=== PATIENT | female | born 1970 | race Caucasian/White ===

== ENCOUNTER 2017-05-06 01:09 | Emergency (ER) | payer OTHER ==
[~2017-05-06] VITALS: Ht 180.3 cm; Wt 101.6 kg
[2017-05-06] MEDS ORDERED: OXYC-396 PO (01:20)
[2017-05-06] MEDS ORDERED: AMLO10 PO (01:20)
[2017-05-06] MEDS ORDERED: VITA1000 PO (01:21)
[2017-05-06 01:22] VITALS: BP_SYST 186; BP_SYST 199; BP_DIAS 102; BP_DIAS 116; PULSE 87; RESP 18; TEMP 98.2; O2SAT 96
[2017-05-06 01:28] VITALS: BP 173/98; PULSE 79; RESP 16; O2SAT 97
[2017-05-06 01:37] LABS: AUTOMATED NEUTROPHIL # 3.8 TH/MM3 (1.8-7.7); BASOPHIL % 0.6 % (0.0-2.0); EOSINOPHIL # 0.1 TH/MM3 (0-0.4); EOSINOPHIL % 1.5 % (0.0-4.0); HEMATOCRIT 37.7 % (35.0-46.0); HEMOGLOBIN 12.3 GM/DL (11.6-15.3); LYMPH % 37.3 % (9.0-44.0); LYMPHOCYTE # 2.5 TH/MM3 (1.0-4.8); MEAN CELL VOLUME 84.8 FL (80.0-100.0); MEAN CORPUSCULAR HEMOGLOBIN 27.6 PG (27.0-34.0); MEAN CORPUSCULAR HGB CONC 32.5 % (32.0-36.0); MEAN PLATELET VOLUME 10.1 FL (7.0-11.0); MONO % 6.5 % (0.0-8.0); MONOCYTE # 0.4 TH/MM3 (0-0.9); NEUT % 54.1 % (16.0-70.0); PLATELET COUNT 268 TH/MM3 (150-450); RED BLOOD COUNT 4.44 MIL/MM3 (4.00-5.30); RED CELL DISTRIBUTION WIDTH 12.9 % (11.6-17.2); WHITE BLOOD COUNT 6.8 TH/MM3 (4.0-11.0)
[2017-05-06 01:46] LABS: CHLORIDE 100 MEQ/L (98-107); SODIUM (NA) 139 MEQ/L (136-145)
--- NOTE | 2017-05-06 01:46 | PD ---
HPI Chief Complaint: Chest Pain Time Seen by Provider: 01:22 Travel History International Travel<30 days: No Contact w/Intl Traveler<30days: No Traveled to known affect area: No History of Present Illness HPI The patient is a 46-year-old female with no known history of heart disease who complains of a sudden onset of sharp chest pain in the left costochondral junctions of the upper sternum at 1143 tonight. The pain is constant. She denies any shortness of breath, diaphoresis but does have some nausea. The pain radiates to her left shoulder. She denies any history of pulmonary embolus. Her medical problems include only fibromyalgia, chronic back pain, hypertension. She is on oxycodone 20 mg twice daily and has been on pain medicines for over 10 years. She had a pain specialist in [place], she recently moved to [place]. She is getting a pain specialist down here as well. She is trying to reduce her amount of oxycodone that she takes and sometimes takes it only once a day. She does not smoke and does not abuse alcohol or drugs. She is a nurse. She has not recorded a fever at home but thinks she might have a fever with some nausea and she did not vomit today but vomited yesterday several times. PFSH Past Medical History Medical other: Yes ("BAD BACK") Tetanus Vaccination: < 5 Years Influenza Vaccination: Yes ?: Unknown LMP: 04/28/17 Past Surgical History Appendectomy: Yes Cholecystectomy: Yes Social History Alcohol Use: No Tobacco Use: No Substance Use: No Allergies-Medications (Allergen,Severity, Reaction): Coded Allergies: No Known Allergies (Unverified , 05/06/17) Reported Meds & Prescriptions Reported Meds & Active Scripts Active Reported Vitamin D-1000 (Cholecalciferol) 1,000 Unit Tab 1,000 Units PO DAILY Oxycodone (Oxycodone HCl) 20 Mg Tab 20 Mg PO Q12HR PRN Norvasc (Amlodipine Besylate) 10 Mg Tab 10 Mg PO DAILY Review of Systems Except as stated in HPI: all other systems reviewed are Neg Physical Exam Narrative GENERAL: The patient is alert, anxious appearing, oriented 3 and moderate apparent distress with her chest discomfort. Her vital signs show blood pressure 190 9/1/16 and repeat 186/102 but otherwise normal. A third repeat reveals 173/98. SKIN: Focused skin assessment warm/dry. HEAD: Atraumatic. Normocephalic. EYES: Pupils equal and round. No scleral icterus. No injection or drainage. ENT: No nasal bleeding or discharge. Mucous membranes pink and moist. NECK: Trachea midline. No JVD. CARDIOVASCULAR: Regular rate and rhythm. No murmur appreciated. RESPIRATORY: No accessory muscle use. Clear to auscultation. Breath sounds equal bilaterally. I can only partially reproduce the patient's chest pain by pressing on the left costochondral junctions. GASTROINTESTINAL: Abdomen soft, non-tender, nondistended. Hepatic and splenic margins not palpable. MUSCULOSKELETAL: No obvious deformities. No clubbing. No cyanosis. No edema. NEUROLOGICAL: Awake and alert. No obvious cranial nerve deficits. Motor grossly within normal limits. Normal speech. PSYCHIATRIC: Appropriate mood and affect; insight and judgment normal. Data Data Last Documented VS Vital Signs Date Time Temp Pulse Resp B/P (MAP) Pulse Ox O2 Delivery O2 Flow Rate FiO2 05/06/17 02:34 146/90 (108) 05/06/17 01:55 71 16 05/06/17 01:28 97 Room Air 05/06/17 01:22 98.2 Orders Orders Electrocardiogram (05/06/17 01:24) Complete Blood Count With Diff (05/06/17 01:24) Basic Metabolic Panel (Bmp) (05/06/17 01:24) Ckmb (Isoenzyme) Profile (05/06/17 01:24) Troponin I (05/06/17 01:24) Iv Access Insert/Monitor (05/06/17 01:24) Ecg Monitoring (05/06/17 01:24) Oximetry (05/06/17 01:24) Chest, Pa & Lat (05/06/17 ) Bilateral Bp Monitoring (05/06/17 01:29) D-Dimer (05/06/17 01:35) Ketorolac Inj (Toradol Inj) (05/06/17 02:00) CKMB (05/06/17 01:20) CKMB% (05/06/17 01:20) Labs Laboratory Tests Test 05/06/17 01:20 White Blood Count 6.8 TH/MM3 Red Blood Count 4.44 MIL/MM3 Hemoglobin 12.3 GM/DL Hematocrit 37.7 % Mean Corpuscular Volume 84.8 FL Mean Corpuscular Hemoglobin 27.6 PG Mean Corpuscular Hemoglobin Concent 32.5 % Red Cell Distribution Width 12.9 % Platelet Count 268 TH/MM3 Mean Platelet Volume 10.1 FL Neutrophils (%) (Auto) 54.1 % Lymphocytes (%) (Auto) 37.3 % Monocytes (%) (Auto) 6.5 % Eosinophils (%) (Auto) 1.5 % Basophils (%) (Auto) 0.6 % Neutrophils # (Auto) 3.8 TH/MM3 Lymphocytes # (Auto) 2.5 TH/MM3 Monocytes # (Auto) 0.4 TH/MM3 Eosinophils # (Auto) 0.1 TH/MM3 Basophils # (Auto) 0.0 TH/MM3 CBC Comment DIFF FINAL Differential Comment D-Dimer Quantitative (PE/DVT) 0.31 MG/L FEU Blood Urea Nitrogen 13 MG/DL Creatinine 1.10 MG/DL Random Glucose 123 MG/DL Calcium Level 8.7 MG/DL Sodium Level 139 MEQ/L Potassium Level 3.7 MEQ/L Chloride Level 100 MEQ/L Carbon Dioxide Level 34.5 MEQ/L Anion Gap 5 MEQ/L Estimat Glomerular Filtration Rate 53 ML/MIN Total Creatine Kinase 174 U/L Creatine Kinase MB 2.0 NG/ML Troponin I LESS THAN 0.02 NG/ML MDM Medical Decision Making Medical Screen Exam Complete: Yes Emergency Medical Condition: Yes Medical Record Reviewed: Yes Interpretation(s) EKG shows sinus rhythm with a rate of [address] elevation or depression. The basic metabolic profile shows a GFR 53, creatinine 1.1 and bicarbonate 3 4.5. The rest of the basic metabolic profile is normal. The cardiac enzymes are normal. The CBC is normal. The d-dimer is normal at 0.31. The chest x-ray shows no acute disease. Differential Diagnosis Costochondritis, atypical chest pain, acute coronary syndrome-unlikely, pulmonary embolus-unlikely, electrolyte disorder, hypo-/hyperglycemia Narrative Course The patient has atypical chest pain. She has fibromyalgia and gets pains like this on occasion. She has a pain management doctor that she is working with and will see this physician. Diagnosis Primary Impression: Atypical chest pain Additional Instructions: Follow-up with her pain management doctor, he seems to be willing to try different routes. Med/Other Pt SpecificInfo: No Change to Meds Disposition: 01 DISCHARGE HOME Condition: Stable Daniele Padilla MD May 06, 2017 01:46
[2017-05-06 01:48] LABS: CALCIUM 8.7 MG/DL (8.5-10.1)
[2017-05-06 01:49] LABS: BICARBONATE 34.5 MEQ/L (21.0-32.0); BLOOD UREA NITROGEN 13 MG/DL (7-18); GLUCOSE,RANDOM 123 MG/DL (74-106)
[2017-05-06 01:52] LABS: GLOMERULAR FILTRATION RATE 53 ML/MIN (>89)
[2017-05-06 01:55] VITALS: BP 179/100; PULSE 71; RESP 16
[2017-05-06 01:57] LABS: TROPONIN I LESS THAN 0.02 NG/ML (0.02-0.05)
[2017-05-06] MEDS ORDERED: KETOROLAC TROMETHAMINE 30 MG/ML (IVP) VIAL IV PUSH ONE (02:00)
[2017-05-06 02:34] VITALS: BP 146/90
--- NOTE | 2017-05-06 03:03 | RADRPT ---
EXAM DATE/TIME: 05/06/2017 01:30 [facility] COMPARISON: No previous studies available for comparison. INDICATIONS : Chest pain. MEDICAL HISTORY : None. SURGICAL HISTORY : None. ENCOUNTER: Initial ACUITY: 1 day PAIN SCORE: 6/10 LOCATION: Left chest FINDINGS: PA and lateral views of the chest demonstrate the lungs to be symmetrically aerated without evidence of mass, infiltrate or effusion. The cardiomediastinal contours are unremarkable. Osseous structure s are intact. CONCLUSION: No acute disease. Andi Johnson MD on May 06, 2017 at 3:00 Board Certified Radiologist. This report was verified electronically.
--- NOTE | 2017-05-06 10:39 | EKG ---
Date Performed: 05/06/2017 Time Performed: 01:16:59 PTAGE: 46 years EKG: Sinus rhythm BORDERLINE LEFT AXIS DEVIATION BORDERLINE ECG NO PREVIOUS TRACING DOCTOR: Fercho Parks Interpretating Date/Time 05/06/2017 10:37:34
== END 2017-05-06 03:21 | disposition home or self-care (01) ==
LOC: PHED 01:09
DX: R07.89 Other chest pain (principal); M79.7 Fibromyalgia
CPT/HCPCS: 71020; 80048; 82550; 82552; 84484; 85025; 85379; 93005; 96374; 99285; J1885

== ENCOUNTER 2018-01-06 16:28 | Emergency (ER) | payer SELFPAY ==
[~2018-01-06] VITALS: Ht 180.3 cm; Wt 100.0 kg
[~2018-01-06 16:28] MED LIST: AMLO10 PO; OXYC-396 PO; VITA1000 PO
[2018-01-06 16:31] VITALS: BP 194/98; PULSE 88; RESP 18; TEMP 98.6; O2SAT 99
--- NOTE | 2018-01-06 17:04 | PD ---
HPI Chief Complaint: Oral / Dental Pain or Problem Time Seen by Provider: 16:49 Travel History International Travel<30 days: No Contact w/Intl Traveler<30days: No Traveled to known affect area: No History of Present Illness HPI 47 year old female here with dental pain and facial swelling 2 days. She reports she has taken 4 doses of amoxicillin 500 mg and the swelling to the face is greatly reduced but the pain persisted therefore she came in for evaluation today. She denies fever chills. No difficulty swallowing. Symptom severity is moderate. No aggravating or alleviating factors. PFSH Past Medical History Medical History: Denies Significant Hx Fibromyalgia: Yes ?: Not Past Surgical History Appendectomy: Yes Cholecystectomy: Yes Social History Alcohol Use: No Tobacco Use: No Substance Use: No Allergies-Medications (Allergen,Severity, Reaction): Coded Allergies: No Known Allergies (Unverified Adverse Reaction, Unknown, 01/06/18) Reported Meds & Prescriptions Reported Meds & Active Scripts Active Ultram (Tramadol HCl) 50 Mg Tab 50 Mg PO Q6H PRN Clindamycin (Clindamycin HCl) 300 Mg Cap 300 Mg PO Q6H 10 Days Reported Norvasc (Amlodipine Besylate) 10 Mg Tab 5 Mg PO DAILY Review of Systems Except as stated in HPI: all other systems reviewed are Neg General / Constitutional: No: Fever Eyes: No: Visual changes HENT: Positive: Dental Difficulties, No: Headaches Cardiovascular: No: Chest Pain or Discomfort Respiratory: No: Shortness of Breath Gastrointestinal: No: Abdominal Pain Genitourinary: No: Dysuria Musculoskeletal: No: Pain Physical Exam Narrative GENERAL: Alert and well-appearing 47-year-old female SKIN: Warm and dry. HEAD: Normocephalic. EYES: No injection or drainage. MOUTH: Decayed and fractured tooth #29 with surrounding gum erythema. No swelling to the floor of the mouth. Uvula is midline. No oral airway swelling. Normal phonation. Mucous members are moist. Mild swelling noted along the right jawline. NECK: Supple, trachea midline. Mild right submandibular lymphadenopathy. No neck mass or swelling. CARDIOVASCULAR: Regular rate and rhythm RESPIRATORY: Breath sounds equal bilaterally. No accessory muscle use. MUSCULOSKELETAL: No cyanosis, or edema. Data Data Last Documented VS Vital Signs Date Time Temp Pulse Resp B/P (MAP) Pulse Ox O2 Delivery O2 Flow Rate FiO2 01/06/18 16:31 98.6 88 18 194/98 (130) 99 Orders Orders Clindamycin Inj (Cleocin Inj) (01/06/18 17:15) MDM Medical Decision Making Medical Screen Exam Complete: Yes Emergency Medical Condition: Yes Differential Diagnosis dental abscess, dental caries, Pravin angina Narrative Course 47 year old female with dental abscess. She is well appearing. No oral airway swelling. Afebrile. She will be treated with clindamycin. Follow up with dentist. Return precautions discussed. Diagnosis Primary Impression: Dental abscess Referrals: Dentist Additional Instructions: Clindamycin as directed. Ibuprofen 800 mg every 6 hours as needed for pain. Follow-up with the dentist. Return if he develop new or worsening symptoms as discussed. Scripts Tramadol (Ultram) 50 Mg Tab 50 MG PO Q6H Y for PAIN, #8 TAB 0 Refills Prov: Luiza Guzman 01/06/18 Clindamycin (Clindamycin) 300 Mg Cap 300 MG PO Q6H for Infection for 10 Days, #40 CAP 0 Refills Prov: Luiza Guzman 01/06/18 Disposition: 01 DISCHARGE HOME Condition: Stable Luiza Guzman Jan 06, 2018 17:04
[2018-01-06] MEDS ORDERED: CLINDAMYCIN PHOS 600 MG/4 ML VIAL IM ONE (17:15)
[2018-01-06] MEDS ORDERED: CLIN300C5 PO (17:17)
[2018-01-06] MEDS ORDERED: TRAM50 PO (17:19)
== END 2018-01-06 17:48 | disposition home or self-care (01) ==
LOC: PHEFT 16:28
DX: K04.7 Periapical abscess without sinus (principal); M79.7 Fibromyalgia
CPT/HCPCS: 96372